=== PATIENT | male | born 1975 | race Caucasian/White ===

== ENCOUNTER → 2017-07-09 | Outpatient (CLI) | payer OTHER ==
[~2017-07-09] MED LIST: BUPR300T51 PO; DILT240C90 PO; LOSA1TAB23 PO; METO-370 PO; MIRT30TA6 PO; OXYC-197 PO
--- NOTE | 2017-07-09 13:52 | Diagnostic Imaging Report ---
Procedure: Lumbar spine. Indication: Back pain. AP, lateral and spot lateral views were obtained. There are no prior studies available for comparison. The lateral view does show that there is narrowing of the disc spaces at L4-5 and L5-S1 and that there is slight retrolisthesis of L4 and I suspect L5. The other intervertebral spaces are well-maintained. There is no fracture or acute bony abnormality identified. There is no sign of a paraspinal mass. There is mild symmetrical sclerosis of the sacroiliac joints. Impression: 1. There is no evidence for acute bony abnormality. 2. There is degenerative disc and bony disease at L4-5 and L5-S1. 3. If there is clinical concern regarding a spinal stenosis or nerve encroachment, MRI would be recommended for further study. Dictated by: Dictated on workstation # [id number]
== END ==
LOC: RAD 12:48
PROVIDERS: ATTEND Nurse Practitioner Family
DX: M51.37 Other intervertebral disc degeneration, lumbosacral region (principal)
CPT/HCPCS: 72100

== ENCOUNTER → 2018-12-01 | Outpatient (CLI) | payer OTHER ==
[~2018-12-01] MED LIST changes: -OXYC-197 PO; +OXYC1TAB87 PO
== END ==
LOC: RAD 08:19
PROVIDERS: ATTEND Nurse Practitioner Family
DX: M25.462 Effusion, left knee (principal); M23.322 Other meniscus derangements, posterior horn of medial meniscus, left knee
CPT/HCPCS: 73721